=== PATIENT | female | born 1975 | race Caucasian/White ===

== ENCOUNTER 2018-10-04 10:10 | Emergency (ER) | payer BC ==
[~2018-10-04] VITALS: Ht 165.1 cm; Wt 86.2 kg
--- NOTE | ~2018-10-04 | EKG ---
[place], [place] ELECTROCARDIOGRAM REPORT NAME: LORNE BEVERLY UNIT #: [id number] ROOM: DOCTOR: GARRY DRAFT REPORT BIRTHDATE: [birth year] [facility] Test Date: 2018-10-04 Test Time: 10:51:47 Pat Name: LORNE BEVERLY Department: Room: Gender: F [employer] Operator: : [id number] Requested By: ANTONIO RIVERO Order Number: [id number] Reading MD: Irineo Talley MD Measurements Intervals [place] Rate: 82 P: 9 CO: 125 QRS: -36 QRSD: 89 T: 26 QT: 429 QTc: 501 Interpretive Statements Sinus rhythm Left axis deviation Abnormal R-wave progression, late transition Borderline prolonged QT interval No previous ECG available for comparison Electronically Signed On 10-11-2018 4:00:52 PDT by Irineo Talley MD CM:EKGRPT:ELECTROCARDIOGRAM REPORT [id number] ANTONIO CASTAÑEDA DRAFT REPORT ANTONIO RIVERO M.D.
[~2018-10-04 10:10] MED LIST: ADVIL200 MG PO; CHANTIX START M1 TAB PO; CIPRO500 MG PO; FLAGYL500 MG PO; KEFLEX500 MG PO; NAPROSYN500 MG PO; NEXIUM40 MG PO; PERCOCET 325 MG1 TA6 PO; VICO10300 PO; VICODIN 5/500 505 MG PO; VITAMIN B12500 MCG PO; ZOFRAN4 MG PO
[2018-10-04 10:50] LABS: BASO # 0.1 10*3/uL (0.0-0.1); BASO % 0.9 % (0.0-1.0); EOS # 0.1 10*3/uL (0.0-0.4); EOS % 1.7 % (1.0-4.0); HEMATOCRIT 37.6 % (37.0-47.0); HEMOGLOBIN 12.6 g/dl (12.0-16.0); LYMPH # 2.6 10*3/uL (1.3-4.4); LYMPH % 31.7 % (27.0-41.0); MEAN CELL VOLUME 95.2 fl (81.0-99.0); MEAN CORPUSCULAR HGB 31.9 pg (27.0-31.0); MEAN CORPUSCULAR HGB CONC 33.5 g/dl (33.0-37.0); MEAN PLATELET VOLUME 9.2 fl (9.6-12.3); MONO # 0.7 10*3/uL (0.1-1.0); MONO % 8.1 % (3.0-9.0); NEUT # 4.7 10*3/uL (2.3-7.9); NEUT % 57.2 % (47.0-73.0); PLATELET COUNT AUTOMATED 299 10*3/uL (130-400); RED BLOOD COUNT 3.95 10*6/uL (4.10-5.10); RED CELL DISTRI WIDTH 13.4 % (0-14.5); WHITE BLOOD COUNT 8.2 10*3/uL (4.8-10.8)
[2018-10-04 11:06] LABS: ALBUMIN 3.4 gm/dl (3.1-4.5); BUN 6 mg/dl (7-24); CHLORIDE 107 mmol/L (98-107); CREATININE 0.55 mg/dL (0.55-1.02); POTASSIUM 4.1 mmol/L (3.5-5.1); SGOT/AST 40 IU/L (3-35); SGPT/ALT 43 U/L (12-78); SODIUM 139 mmol/L (136-145); TOTAL PROTEIN 7.3 gm/dL (6.4-8.2)
[2018-10-04 11:11] LABS: ALKALINE PHOSPHATASE 91 U/L (45-117)
[2018-10-04] MEDS ORDERED: PREDNISONE20 M1 PO (12:49)
[2018-10-04] MEDS ORDERED: VIBRAMYCIN100 MG PO (12:49)
[2018-10-04] MEDS ORDERED: ZESTRIL10 MG PO (12:51)
[2018-10-04 13:00] VITALS: BP 120/72
== END 2018-10-04 13:15 | disposition home or self-care (01) ==
LOC: ED 10:10
PROVIDERS: Emergency Medicine
DX: J45.909 Unspecified asthma, uncomplicated (principal); I10 Essential (primary) hypertension; F17.290 Nicotine dependence, other tobacco product, uncomplicated; Z79.899 Other long term (current) drug therapy

== ENCOUNTER → 2019-06-06 | Outpatient (CLI) | payer BC ==
[~2019-06-06] MED LIST changes: +PREDNISONE20 M1 PO; +VIBRAMYCIN100 MG PO; +ZESTRIL10 MG PO
[2019-06-06 17:05] LABS: ALBUMIN 3.5 gm/dl (3.1-4.5); ALKALINE PHOSPHATASE 109 U/L (45-117); BUN 11 mg/dl (7-24); CHLORIDE 100 mmol/L (98-107); CREATININE 0.59 mg/dL (0.55-1.02); SGOT/AST 32 IU/L (3-35); SGPT/ALT 47 U/L (12-78); SODIUM 133 mmol/L (136-145); TOTAL PROTEIN 7.5 gm/dL (6.4-8.2)
== END | disposition home or self-care (01) ==
LOC: LAB 16:16
PROVIDERS: Orthopaedic Surgery
DX: M47.816 Spondylosis without myelopathy or radiculopathy, lumbar region (principal); M48.061 Spinal stenosis, lumbar region without neurogenic claudication; M54.5 Low back pain; F15.90 Other stimulant use, unspecified, uncomplicated

== ENCOUNTER → 2020-10-17 | Outpatient (CLI) | payer BC ==
[2020-10-17 13:21] LABS: HEMATOCRIT 37.5 % (37.0-47.0); MEAN CORPUSCULAR HGB 31.6 pg (27.0-31.0); MEAN CORPUSCULAR HGB CONC 33.6 g/dl (33.0-37.0); MEAN PLATELET VOLUME 9.4 fl (9.6-12.3); RED BLOOD COUNT 3.99 10*6/uL (4.10-5.10); RED CELL DISTRI WIDTH 13.6 % (0-14.5); WHITE BLOOD COUNT 7.5 10*3/uL (4.8-10.8)
[2020-10-17 13:55] LABS: ALBUMIN 3.5 gm/dl (3.1-4.5); BUN 8 mg/dl (7-24); CHLORIDE 101 mmol/L (98-107); CHOLESTEROL 286 mg/dL (<200); CREATININE 0.57 mg/dL (0.55-1.02); POTASSIUM 4.8 mmol/L (3.5-5.1); SGOT/AST 32 IU/L (3-35); SGPT/ALT 36 U/L (12-78); SODIUM 132 mmol/L (136-145)
[2020-10-17 14:04] LABS: ALKALINE PHOSPHATASE 86 U/L (45-117); TOTAL PROTEIN 7.5 gm/dL (6.4-8.2); TRIGLYCERIDES 1081 mg/dl (<150)
== END | disposition home or self-care (01) ==
LOC: LAB 12:16
PROVIDERS: ATTEND Family Medicine
DX: Z13.220 Encounter for screening for lipoid disorders (principal); I10 Essential (primary) hypertension; R60.0 Localized edema

== ENCOUNTER → 2020-11-07 | Outpatient (CLI) | payer BC | END | disposition home or self-care (01) | LOC: MAMMO 10-28 10:00 | PROVIDERS: ATTEND Family Medicine | DX: Z12.31 Encounter for screening mammogram for malignant neoplasm of breast (principal); N64.89 Other specified disorders of breast ==

== ENCOUNTER → 2020-11-21 | Outpatient (CLI) | payer BC | END | disposition home or self-care (01) | LOC: MAMMO 08:48 | PROVIDERS: ATTEND Family Medicine | DX: N63.20 Unspecified lump in the left breast, unspecified quadrant (principal); N64.59 Other signs and symptoms in breast ==

== ENCOUNTER → 2021-01-07 | Outpatient (CLI) | payer BC ==
[2021-01-07 10:34] LABS: ALBUMIN 3.7 gm/dl (3.1-4.5); ALKALINE PHOSPHATASE 63 U/L (45-117); BUN 7 mg/dl (7-24); CHLORIDE 104 mmol/L (98-107); CHOLESTEROL 282 mg/dL (<200); CPK 62 U/L (26-192); CREATININE 0.71 mg/dL (0.55-1.02); POTASSIUM 4.2 mmol/L (3.5-5.1); SGOT/AST 29 IU/L (3-35); SGPT/ALT 30 U/L (12-78); SODIUM 135 mmol/L (136-145); TRIGLYCERIDES 528 mg/dl (<150)
== END | disposition home or self-care (01) ==
LOC: LAB 09:19
PROVIDERS: ATTEND Family Medicine
DX: R07.81 Pleurodynia (principal); I10 Essential (primary) hypertension; E78.00 Pure hypercholesterolemia, unspecified

== ENCOUNTER → 2022-01-16 | Outpatient (CLI) | payer BC ==
[2022-01-16 07:56] LABS: BASO # 0.1 10*3/uL (0.0-0.1); BASO % 0.9 % (0.0-1.0); EOS # 0.2 10*3/uL (0.0-0.4); EOS % 3.1 % (1.0-4.0); HEMATOCRIT 35.4 % (37.0-47.0); LYMPH # 1.4 10*3/uL (1.3-4.4); LYMPH % 24.5 % (27.0-41.0); MEAN CELL VOLUME 87.2 fl (81.0-99.0); MEAN CORPUSCULAR HGB 27.8 pg (27.0-31.0); MEAN CORPUSCULAR HGB CONC 31.9 g/dl (33.0-37.0); MEAN PLATELET VOLUME 8.8 fl (9.6-12.3); MONO # 0.4 10*3/uL (0.1-1.0); MONO % 6.6 % (3.0-9.0); NEUT # 3.7 10*3/uL (2.3-7.9); NEUT % 64.6 % (47.0-73.0); PLATELET COUNT AUTOMATED 504 10*3/uL (130-400); RED BLOOD COUNT 4.06 10*6/uL (4.10-5.10); WHITE BLOOD COUNT 5.8 10*3/uL (4.8-10.8)
[2022-01-16 08:14] LABS: ALKALINE PHOSPHATASE 65 U/L (45-117); BUN 7 mg/dl (7-24); CHLORIDE 103 mmol/L (98-107); CHOLESTEROL 186 mg/dL (<200); CREATININE 0.55 mg/dL (0.55-1.02); FREE T4 0.99 ng/dl (0.76-1.46); LDL CHOLESTEROL 90 mg/dL (9-159); POTASSIUM 3.7 mmol/L (3.5-5.1); SGOT/AST 53 IU/L (3-35); SGPT/ALT 61 U/L (12-78); SODIUM 136 mmol/L (136-145); TOTAL PROTEIN 7.8 gm/dL (6.4-8.2); TRIGLYCERIDES 125 mg/dl (<150)
[2022-01-16 09:30] LABS: VITAMIN D, 25-HYDROXY 14.8 ng/mL (30-100)
[2022-01-17 04:06] LABS: FOLLICLE STIMULATING HORMONE 6.4 mIU/mL (.); LUTEINIZING HORMONE 4.3 mIU/mL (.)
[2022-01-20 10:07] LABS: TESTOSTERONE FREE, (DIRECT) 6.4 pg/mL (0.0-4.2)
== END ==
LOC: LAB 07:16
PROVIDERS: ATTEND Family Medicine
DX: I10 Essential (primary) hypertension (principal); E55.9 Vitamin D deficiency, unspecified; R53.83 Other fatigue; D64.9 Anemia, unspecified

== ENCOUNTER → 2022-07-24 | Outpatient (CLI) | payer BC ==
[2022-07-24 07:24] LABS: HEMATOCRIT 37.1 % (37.0-47.0); MEAN CELL VOLUME 86.5 fl (81.0-99.0); MEAN CORPUSCULAR HGB 27.3 pg (27.0-31.0); MEAN CORPUSCULAR HGB CONC 31.5 g/dl (33.0-37.0); MEAN PLATELET VOLUME 8.9 fl (9.6-12.3); RED BLOOD COUNT 4.29 10*6/uL (4.10-5.10); RED CELL DISTRI WIDTH 17.2 % (0-14.5); WHITE BLOOD COUNT 7.3 10*3/uL (4.8-10.8)
[2022-07-24 07:54] LABS: ALKALINE PHOSPHATASE 57 U/L (46-116); BUN 10 mg/dl (9-23); CHLORIDE 103 mmol/L (98-107); CHOLESTEROL 223 mg/dL (<200); GAMMA GLUTAMYL TRANSPEPTIDASE 72 U/L (0-73); LDL CHOLESTEROL 121 mg/dL (9-159); POTASSIUM 4.4 mmol/L (3.4-5.1); SGPT/ALT 32 U/L (10-49); TOTAL PROTEIN 7.6 gm/dL (6.0-8.0); TRIGLYCERIDES 155 mg/dl (<150)
[2022-07-24 08:19] LABS: VITAMIN D, 25-HYDROXY 14.1 ng/mL (30-100)
== END | disposition home or self-care (01) ==
LOC: LAB 07:05
PROVIDERS: ATTEND Family Medicine
DX: E78.00 Pure hypercholesterolemia, unspecified (principal); E55.9 Vitamin D deficiency, unspecified; I10 Essential (primary) hypertension; R53.83 Other fatigue; K63.5 Polyp of colon; K21.9 Gastro-esophageal reflux disease without esophagitis; Z87.891 Personal history of nicotine dependence

== ENCOUNTER 2023-02-05 21:25 | Emergency (ER) | payer BC ==
[~2023-02-05] VITALS: Ht 165.1 cm; Wt 90.7 kg
[2023-02-05 21:34] VITALS: BP 93/54
[2023-02-05] MEDS ORDERED: HYDROCHLOROTHIA25 M1 PO (21:35)
[2023-02-05] MEDS ORDERED: NEXIUM20 M2 PO (21:35)
[2023-02-05] MEDS ORDERED: VALSARTAN80 MG PO (21:35)
[2023-02-05] MEDS ORDERED: FENOFIBRATE145 M1 PO (21:35)
[2023-02-05] MEDS ORDERED: ONDANSETRON4 MG SL (22:51)
[2023-02-05] MEDS ORDERED: HYDROCODONE-AC1 EACH PO ×2 (22:51)
[2023-02-06] MEDS ORDERED: HYDROCODONE-AC1 EACH PO (09:31)
== END 2023-02-05 22:57 | disposition home or self-care (01) ==
LOC: ED 21:25
DX: S42.201A Unspecified fracture of upper end of right humerus, initial encounter for closed fracture (principal); I10 Essential (primary) hypertension; J45.909 Unspecified asthma, uncomplicated; Z98.890 Other specified postprocedural states; W18.09XA Striking against other object with subsequent fall, initial encounter; Y93.89 Activity, other specified; Y92.009 Unspecified place in unspecified non-institutional (private) residence as the place of occurrence of the external cause; Y99.8 Other external cause status

== ENCOUNTER → 2023-02-08 | Outpatient (CLI) | payer BC ==
[~2023-02-08] MED LIST changes: +FENOFIBRATE145 M1 PO; +HYDROCHLOROTHIA25 M1 PO; +HYDROCODONE-AC1 EACH PO; +NEXIUM20 M2 PO; +ONDANSETRON4 MG SL; +VALSARTAN80 MG PO
== END | disposition home or self-care (01) ==
LOC: RAD 11:06
PROVIDERS: ATTEND Orthopaedic Surgery
DX: S42.391A Other fracture of shaft of right humerus, initial encounter for closed fracture (principal); W19.XXXA Unspecified fall, initial encounter; Y93.89 Activity, other specified; Y92.89 Other specified places as the place of occurrence of the external cause; Y99.8 Other external cause status

== ENCOUNTER → 2024-07-06 | Outpatient (CLI) | payer OTHER ==
[2024-07-06 08:15] LABS: HEMATOCRIT 36.3 % (37.0-47.0); MEAN CORPUSCULAR HGB 30.6 pg (27.0-31.0); MEAN CORPUSCULAR HGB CONC 33.6 g/dl (33.0-37.0); MEAN PLATELET VOLUME 9.3 fl (9.6-12.3); RED BLOOD COUNT 3.99 10*6/uL (4.10-5.10); RED CELL DISTRI WIDTH 14.6 % (0-14.5); WHITE BLOOD COUNT 5.8 10*3/uL (4.8-10.8)
[2024-07-06 08:36] LABS: ALKALINE PHOSPHATASE 112 U/L (46-116); BUN 7 mg/dl (9-23); CHLORIDE 98 mmol/L (98-107); CHOLESTEROL 226 mg/dL (<200); POTASSIUM 3.9 mmol/L (3.4-5.1); SGPT/ALT 38 U/L (5-49); TOTAL PROTEIN 7.3 gm/dL (6.0-8.0); TRIGLYCERIDES 630 mg/dl (<150)
== END | disposition home or self-care (01) ==
LOC: LAB 07:15
PROVIDERS: ATTEND Family Medicine
DX: R07.9 Chest pain, unspecified (principal); R53.83 Other fatigue; E55.9 Vitamin D deficiency, unspecified; I10 Essential (primary) hypertension

== ENCOUNTER → 2024-07-24 | Outpatient (CLI) | payer OTHER ==
[2024-07-24 15:39] LABS: BASO # 0.1 10*3/uL (0.0-0.1); BASO % 0.7 % (0.0-1.0); EOS # 0.2 10*3/uL (0.0-0.4); EOS % 1.6 % (1.0-4.0); HEMATOCRIT 37.2 % (37.0-47.0); MEAN CELL VOLUME 92.8 fl (81.0-99.0); MEAN CORPUSCULAR HGB 30.9 pg (27.0-31.0); MEAN CORPUSCULAR HGB CONC 33.3 g/dl (33.0-37.0); MEAN PLATELET VOLUME 9.1 fl (9.6-12.3); MONO # 0.8 10*3/uL (0.1-1.0); MONO % 8.4 % (3.0-9.0); NEUT # 5.4 10*3/uL (2.3-7.9); NEUT % 56.6 % (47.0-73.0); PLATELET COUNT AUTOMATED 325 10*3/uL (130-400); RED BLOOD COUNT 4.01 10*6/uL (4.10-5.10); WHITE BLOOD COUNT 9.5 10*3/uL (4.8-10.8)
[2024-07-24 16:08] LABS: ALKALINE PHOSPHATASE 116 U/L (46-116); BUN 9 mg/dl (9-23); CHLORIDE 99 mmol/L (98-107); POTASSIUM 3.7 mmol/L (3.4-5.1); SGPT/ALT 36 U/L (5-49); TOTAL PROTEIN 7.7 gm/dL (6.0-8.0)
== END | disposition home or self-care (01) ==
LOC: LAB 15:22
PROVIDERS: ATTEND Nurse Practitioner Family
DX: I12.9 Hypertensive chronic kidney disease with stage 1 through stage 4 chronic kidney disease, or unspecified chronic kidney disease (principal); N18.9 Chronic kidney disease, unspecified; E03.9 Hypothyroidism, unspecified

== ENCOUNTER → 2024-08-16 | Outpatient (CLI) | payer OTHER ==
[2024-08-16 10:08] LABS: ALKALINE PHOSPHATASE 71 U/L (46-116); BUN 9 mg/dl (9-23); CHLORIDE 98 mmol/L (98-107); CHOLESTEROL 226 mg/dL (<200); CPK 65 U/L (34-171); LDL CHOLESTEROL 100 mg/dL (9-159); POTASSIUM 3.8 mmol/L (3.4-5.1); SGPT/ALT 23 U/L (5-49); TOTAL PROTEIN 7.4 gm/dL (6.0-8.0); TRIGLYCERIDES 295 mg/dl (<150)
== END | disposition home or self-care (01) ==
LOC: LAB 07:17
PROVIDERS: ATTEND Family Medicine
DX: E78.00 Pure hypercholesterolemia, unspecified (principal)

== ENCOUNTER → 2024-10-12 | Outpatient (CLI) | payer OTHER | END | disposition home or self-care (01) | LOC: WOUNDCARE 13:51 | PROVIDERS: ATTEND Nurse Practitioner Family | DX: T81.31XA Disruption of external operation (surgical) wound, not elsewhere classified, initial encounter (principal); L72.3 Sebaceous cyst; E78.00 Pure hypercholesterolemia, unspecified; I10 Essential (primary) hypertension; K21.9 Gastro-esophageal reflux disease without esophagitis; Z87.891 Personal history of nicotine dependence; Z98.890 Other specified postprocedural states; Z79.899 Other long term (current) drug therapy; Y92.89 Other specified places as the place of occurrence of the external cause; Y83.8 Other surgical procedures as the cause of abnormal reaction of the patient, or of later complication, without mention of misadventure at the time of the procedure ==

== ENCOUNTER → 2024-10-17 | Outpatient (CLI) | payer OTHER | END | disposition home or self-care (01) | LOC: WOUNDCARE 04:04 | PROVIDERS: ATTEND Nurse Practitioner Family | DX: T81.31XD Disruption of external operation (surgical) wound, not elsewhere classified, subsequent encounter (principal); L72.3 Sebaceous cyst; I10 Essential (primary) hypertension; E78.00 Pure hypercholesterolemia, unspecified; K21.9 Gastro-esophageal reflux disease without esophagitis; Z87.891 Personal history of nicotine dependence; Z79.899 Other long term (current) drug therapy; Y83.8 Other surgical procedures as the cause of abnormal reaction of the patient, or of later complication, without mention of misadventure at the time of the procedure ==

== ENCOUNTER → 2024-10-24 | Outpatient (CLI) | payer OTHER | END | disposition home or self-care (01) | LOC: WOUNDCARE 15:23 | PROVIDERS: ATTEND Nurse Practitioner Family | DX: T81.31XD Disruption of external operation (surgical) wound, not elsewhere classified, subsequent encounter (principal); L98.492 Non-pressure chronic ulcer of skin of other sites with fat layer exposed; L72.3 Sebaceous cyst; I10 Essential (primary) hypertension; E78.00 Pure hypercholesterolemia, unspecified; K21.9 Gastro-esophageal reflux disease without esophagitis; Z87.891 Personal history of nicotine dependence; Z79.899 Other long term (current) drug therapy; Y83.8 Other surgical procedures as the cause of abnormal reaction of the patient, or of later complication, without mention of misadventure at the time of the procedure ==

== ENCOUNTER → 2024-11-09 | Outpatient (CLI) | payer OTHER | END | disposition home or self-care (01) | LOC: WOUNDCARE 02:50 | PROVIDERS: ATTEND Nurse Practitioner Family | DX: T81.31XD Disruption of external operation (surgical) wound, not elsewhere classified, subsequent encounter (principal); L98.492 Non-pressure chronic ulcer of skin of other sites with fat layer exposed; L72.3 Sebaceous cyst; I10 Essential (primary) hypertension; E78.00 Pure hypercholesterolemia, unspecified; K21.9 Gastro-esophageal reflux disease without esophagitis; Z87.891 Personal history of nicotine dependence; Z79.899 Other long term (current) drug therapy; Y83.8 Other surgical procedures as the cause of abnormal reaction of the patient, or of later complication, without mention of misadventure at the time of the procedure ==